=== PATIENT | female | born 1955 | race Caucasian/White ===

== ENCOUNTER 2024-03-13 08:47 | Emergency (ER) | payer MEDICARE, OTHER, SELFPAY ==
[2024-03-13 09:15] VITALS: BP 156/111; PULSE 76; RESP 18; TEMP 36.5; O2SAT 97; BMI 24.7
[2024-03-13 09:27] VITALS: BP 143/88; PULSE 69; RESP 16; TEMP 37.1; O2SAT 97
--- NOTE | 2024-03-13 09:30 | ED_ITS ---
HPI - Extremity Problem General Chief complaint: Extremity Problem,Nontraumatic Stated complaint: Having pain/swelling in LT lower leg Time Seen by Provider: 03/13/24 09:24 History of Present Illness HPI Narrative: Patient here for left calf pain and swelling. This started last night after massage. However patient has had a blood clot in the same leg 3 or 4 years ago. Is no longer on any blood thinners. Denies denies any chest pain shortness of breath. Patient did return from [place] 2 weeks ago, she was flying. Although the past month, she has had off and on left leg discomfort, she thought she may have strained it. She got a massage yesterday has had again no chest pain or shortness of breath. Related Data Previous Rx's Medication Instructions Recorded apixaban 5 mg tablet (Eliquis) See Rx Instructions .Route 03/13/24 .COMPLEX #74 tabs Allergies Allergy/AdvReac Type Severity Reaction Status Date / Time tetracycline Allergy Verified 03/13/24 09:19 Review of Systems Review of Systems Narrative: GENERAL: Negative chills, fatigue, malaise, fever, sweats. HEENT: Negative sinus pain, ear pain, sore throat RESPIRATORY: Negative dyspnea, cough CARDIOVASCULAR: Negative chest pain, palpitations GASTROINTESTINAL: Negative nausea, vomiting, abdominal pain : Negative dysuria, frequency, hematuria MUSCULOSKELETAL: Positive muscle or bony pain SKIN: Negative rash, skin lesions NEUROLOGIC: Negative weakness, numbness ROS Unobtainable: All systems reviewed & are unremarkable except as noted in HPI and below Patient History Social History Smoking Status: Never smoker Smoking Status: Never smoker Exam Narrative Exam Narrative: GENERAL: in no distress, not toxic not dyspneic HEAD: Normocephalic. EYES: Pupils equal round ENT: Mucous membranes moist. NECK: Trachea midline. CARDIOVASCULAR: Regular rate and rhythm RESPIRATORY: Clear to auscultation. Breath sounds equal bilaterally. No wheezes, rales, or rhonchi. GASTROINTESTINAL: Abdomen soft, non-tender EXTREMITIES: No gross deformities. Examination of the left lower extremity. She went sock removed. Negative Homans test negative Zafar test. No palpable cords. There is mild mid calf tenderness. Strong pedal pulse brisk cap refills foot warm soft and pink. Wiggles toes. Light touch intact to foot and toes. NEURO: AOx4. SKIN: Warm and dry PSYCH: Not anxious, is cooperative Initial Vital Signs Initial Vital Signs: Vital Signs Temperature 97.7 F 03/13/24 09:15 Pulse Rate 76 03/13/24 09:15 Respiratory Rate 18 03/13/24 09:15 Blood Pressure 156/111 H 03/13/24 09:15 Pulse Oximetry 97 03/13/24 09:15 Oxygen Delivery Method Room Air 03/13/24 09:15 Course Orders Ordered: ED Orders 03/13/24 09:30 US periph venous low extrem lt Stat Vital Signs Vital signs: Vital Signs - 8 hr 03/13/24 09:15 03/13/24 09:27 Temperature 97.7 F 98.7 F Pulse Rate 76 69 Respiratory Rate 18 16 Blood Pressure 156/111 H 143/88 H Pulse Oximetry 97 97 Oxygen Delivery Method Room Air Room Air MDM - Extremity (Nontraumatic) Imaging Data US - DVT: Radiologist's Impression: [address] [address] Ultrasound Report Signed Patient: Hallie Jane MR#: [id number] : 1955 Acct:[id number] Age/Sex: 68 / F Date of Service: 03/13/24 Loc: ED Accession Number: [id number] Procedure: US perip venous low extrem lt Ordering Provider: Julian Palafox MD PROCEDURE: US PERIPH VENOUS LOW EXTREM LT INDICATIONS: Leg pain/swelling TECHNIQUE: Real-time imaging, as well as color and pulse Doppler interrogation, were pe rformed of the lower extremity deep veins from the inguinal ligament to the popliteal fossa, with documentation of the visualized calf veins. COMPARISON: None. FINDINGS: The common femoral, femoral, popliteal, and the visualized calf veins are normally compressible, and free of intraluminal thrombus. Color and pulse Doppler demonstrate normal phasic intraluminal flow. There is normal augmentation response to distal compression maneuver. There is occlusive venous thrombosis involving superficial vein of left calf possibly within the short saphenous vein. IMPRESSION: No evidence of DVT in visualized left lower extremity veins. Occlusive superficial venous thrombosis involving superficial vein of medial calf region possibly involving short saphenous vein. Dictated by: Joel Seth M.D. on 03/13/2024 at 10:22 Approved by: Joel Seth M.D. on 03/13/2024 at 10:24 [facility] Narrative Medical decision making narrative: Patient here for left calf pain and swelling. This started last night after massage. However patient has had a blood clot in the same leg 3 or 4 years ago. Is no longer on any blood thinners. Denies denies any chest pain shortness of breath. Patient did return from [place] 2 weeks ago, she was flying. Although the past month, she has had off and on left leg discomfort, she thought she may have strained it. She got a massage yesterday has had again no chest pain or shortness of breath. After history and exam, exam is reassuring. Pants off. She was in socks off. No blood work indicated at this time. Ultrasound of the leg will be ordered [facility] Medical records reviewed: No recent visit for this complaint Differential considered: Includes but not limited to DVT SVT calf strain lumbar radiculopathy Lab Test results independently reviewed as above. Pertinent findings: Imaging studies independently reviewed: Ultrasound of the left leg, no DVT but there is SVT. Consultations: None indicated at this time Treatments: Prescription for Eliquis provided, she does not want Eliquis here. Re-evaluations: 10:59 a.m.. Reviewed with patient results. She does desire prescription for Eliquis, she is returning back to [place] shortly and will be there for 6 weeks. She is concern of developing/transitioning to a DVT. Blood pressure improved at time of discharge 143/88 pulse 69 Discussion: Appropriate for discharge home exam is reassuring. No respiratory complaints. Return precautions reviewed she desires discharge home, no blood work indicated at this time. No history of heart attack strokes diabetes renal disease or liver disease. Patient has taken Eliquis in the past Diagnosis: Left leg SVT Discharge Plan Departure Patient Disposition: Home Clinical Impression: Acute superficial venous thrombosis of left lower extremity Instructions: DI for Deep Vein Thrombosis, DI for Superficial Thrombophlebitis Activity Restrictions/Additional Instructions: Please see your family doctor within a week for re-evaluation. Prescription for Eliquis has been provided for you. Return immediately if worse if any questions or concerns or if any shortness of breath or chest pain. Prescriptions: New Eliquis 5 mg tablet See Rx Instructions .ROUTE .COMPLEX Qty: 74 0RF Rx Instructions: Take 10 mg by mouth twice a day for 7 days and then 5 mg by mouth twice a day Referrals: Chucho Beck MD [Primary Care Provider] - Stand Alone Forms: Patient Portal/API/Survey
[2024-03-13 11:17] VITALS: BP 135/88; PULSE 68; RESP 18; O2SAT 96
== END 2024-03-13 11:18 | disposition home or self-care (01) ==
PROVIDERS: Emergency Provider Emergency Medicine; PCP Family Medicine
DX: I82.812 Embolism and thrombosis of superficial veins of left lower extremity (principal)
CPT/HCPCS: 93971; 99281; 99283